=== PATIENT | female | born 2000 | race Caucasian/White ===

== ENCOUNTER 2025-05-18 09:30 | Emergency (ER) | payer BC, SELFPAY ==
[2025-05-18 09:36] VITALS: BP 149/105
--- NOTE | 2025-05-18 11:50 | ED.GENMED ---
History of Present Illness
General
Chief Complaint: Abdominal Symptoms
Source: patient
Exam Limitations: none
Time Seen by Provider: 05/18/25 11:03
Nursing documentation reviewed up to this point in time: agreed with
History of Present Illness
History of Present Illness:
see MDM
Phy Exam
Physical Exam
Physical Exam:
see MDM
Course
Orders/Labs/Results
Orders:
Orders
05/18/25 11:47
CT Abd/Pel (IV only)-DH only Urgent
Comment:
Reason For Exam: n/v/d now RLQ pain
0.9% Sodium Chloride 1000 ml [Nss] 1,000 ml IV BOLUS
Ketorolac [Toradol] 30 mg IV NOW STA
Ondansetron Injectable [Zofran] 4 mg IV NOW STA
Test Result ONCE
05/18/25 11:53
Complete Blood Count/With Diff Urgent
Comprehensive Metabolic Panel Urgent
HCG, Serum Qualitative Screen Urgent
Lipase Urgent
05/18/25 14:18
Urinalysis Reflex To Culture Urgent
Date Specimen was Collected: 05/18/25
Time Specimen was Collected: 14:17
Urine Microscopic Reflex Cult Urgent
Urine Culture Urgent
ANTHONY Source: U
Specimen Description:
Date Specimen was Collected: 05/18/25
Time Specimen was Collected: 14:17
Abnormal Lab Results
05/18/25 05/18/25
11:53 14:18
Hgb 16.1 H g/dL
(12.0-16.0)
BUN 5 L mg/dl
(7-17)
AST 43 H U/L
(14-36)
ALT 79 H U/L
(0-35)
Total Protein 8.7 H g/dl
(6.3-8.2)
Albumin 5.4 H g/dl
(3.5-5.0)
Urine Ketones 2+ A
(Negative)
Ur Occult Blood Reflex 3+ A
(Negative)
Urine RBC 3-6 A /HPF
(0-2)
Urine Bacteria (Reflex) Moderate A
(Negative)
Urine Albumin (Reflex) 1+ A
(Neg - Trace)
05/18/25 11:53
05/18/25 11:53
Vital Signs
Initial and Last Documented VS:
Initial Vital Signs
Temp Pulse Resp BP Pulse Ox
36.8 C 106 16 149/105 99
05/18/25 09:36 05/18/25 09:36 05/18/25 09:36 05/18/25 09:36 05/18/25 09:36
Last Documented Vital Signs
Temp Pulse Resp BP Pulse Ox
36.8 C 88 16 113/74 97
05/18/25 09:36 05/18/25 14:58 05/18/25 14:58 05/18/25 14:58 05/18/25 14:58
MDM/Problems Addressed
Differential Diagnosis Includes:
SEE mdm
MDM/Problems Addressed:
Note:
CHIEF COMPLAINT(S)
Inability to retain oral intake and abdominal pain for three days.
HISTORY OF PRESENT ILLNESS
The patient is a 24-year-old female who presents with an inability to retain oral intake and abdominal pain persisting for three days. The onset of symptoms began with both diarrhea and nausea. she had frequent loose stools after any oral intake
Initially, the pain was localized to the upper abdomen and later involved the lower back.
Her symptoms began more prominently this morning with increased episodes of vomiting throughout the night and continued till this morning. Due to her weakening state, she tried to go to work but was sent home before 7 AM. The patient is negative for
fever or chills but reports cold sensitivity. There is mention of diarrhea, noting it has not subsided because she has not been consuming much to eat. The patient affirms the abdominal pain spans the entirety of the abdomen and shows no sign of
localization.
PAST MEDICAL AND SURGICAL HISTORY
The patient reports taking Gabapentin for anxiety. No history of diabetes, recent injections, or surgeries was noted. She confirms possession of her gallbladder.
SOCIAL DETERMINANTS AFFECTING HEALTH
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
MEDICATIONS
Gabapentin for anxiety.
PHYSICAL EXAM
GENERAL: Alert , in no apparent distress, looks well
EYE: pupils equal and reactive
NECK: Supple
ENT: o/p clr, mmm.
CARDIAC: Regular rate and rhythm .
LUNGS: Clear breath sounds bilaterally, no acute respiratory distress, no wheezes/rales/rhonchi
ABDOMEN: Soft, mild right lower quadrant tenderness, no Mahoney sign, no right upper quadrant tenderness no r/g, no cvat, normal bowel sounds
NEUROLOGICAL: Alert and oriented, no focal neuro deficits
SKIN: Warm and dry, skin intact.
MUSCULOSKELETAL: No edema, well perfused.
PSYCH: Normal and appropriate interaction.
- Nursing notes reviewed and vital signs reviewed.
PROBLEM LIST
Acute:
1. Inability to retain oral intake.
2. Generalized abdominal pain.
3. Loss of consciousness episodes.
4. Vomiting and potential dehydration.
5. Cold sensitivity.
PLAN
1. Blood work and intravenous fluids to assess and manage possible electrolyte imbalance and dehydration.
2. Administer antiemetics for nausea and vomiting control.
3. Perform a computed tomography (CT) scan to evaluate abdominal pain and rule out appendicitis or other intra-abdominal pathology, particularly considering possible colitis or gastroenteritis.
4. Pain management with Toradol as needed.
5. Further evaluation for gallbladder disease, as initial assessment suggests symptoms inconsistent with typical gallbladder location pain.
DIFFERENTIAL DIAGNOSIS
The Differential Diagnosis includes, in no particular order and is not limited to:
1. Gastroenteritis
2. Colitis
3. Peptic Ulcer Disease
4. Appendicitis
5. Gallbladder Disease (Cholecystitis or Cholelithiasis)
6. Pancreatitis
7. Small Bowel Obstruction
8. Urinary Tract Infection
9. Intra-abdominal Abscess
10. Diverticulitis
CARE-UPDATE
05/18/25 - 14:05
The patients recent CAT scan was unremarkable except for mild fatty changes in the liver. The gallbladder, pancreas, appendix, and bowels appeared normal. Blood work showed normal white count and electrolytes, with slightly elevated liver markers,
likely due to a viral infection; other markers such as bilirubin and lipase were normal. There is no indication of a gallbladder infection. The patients pain location has shifted lower, and the nausea has improved with Zofran, though the patient
reports it is wearing off. A urine test will be checked to rule out other causes of discomfort, and the patient will receive a prescription for Zofran to manage nausea at home. A work note will be provided.
*Pulse Oximetry
SaO2: 99
Oxygen Mode of Delivery: Room air
Patient hypoxic: no (97)
*Critical Care Note
Total Time (30-74mins, 75-104mins- exclusive of procedures): Not Applicable
ED Attending Note
-
Portions of this chart may have been created with voice recognition software.� Occasional wrong word or��sound alike� substitutions may have occurred due to the inherent limitations of voice recognition software.
Discharge Plan
Departure
Patient Disposition: Home (Routine Discharge)
Date of Disposition: 05/18/25
Time of Disposition: 15:15
Patient with high blood pressure during this ER visit?: No
Discharge Problem:
Gastroenteritis
Instructions: Viral gastroenteritis in adults, Nausea and vomiting in adults - ED (DC)
Prescriptions:
New
ondansetron 4 mg tablet,disintegrating
4 mg PO Q8H PRN (Reason: nausea and vomiting) 2 Days Qty: 5 0RF
Referrals:
NONE,* [Family Provider, Internal Medicine]
Stand Alone Forms: Return to Work
Activity Restrictions/Additional Instructions:
YOUR LIVER MARKERS WERE A LITTLE HIGH BUT YOUR GALLBLADDER LOOKED NORMAL ON CT
THIS IS LIKELY DUE TO VIRAL GASTROENTERITIS
YOUR OTHER BLOOD WORK WAS NORMAL
TAKE ZOFRAN EVERY 8 HOURS FOR VOMITING AND NAUSEA NEEDED
YOU CAN TAKE MOTRIN FOR PAIN NEEDED
RETURN FOR: SEVERE PAIN, VOMITING CONTINUING DESPITE ZOFRAN, HIGH FEVER, WORSE PAIN ETC
HAVE YOUR DOCTOR CHECK YOUR LIVER MARKERS WHEN YOU ARE ALL BETTER
Interventions
Interventions:
*Risk Screen - Suicide Last Done: 05/18/25 09:36
*General Assessment Last Done: 05/18/25 15:28
*Neglect/Abuse Screening Last Done: 05/18/25 09:36
*ED- Fall Risk Assessment Last Done: 05/18/25 15:29
*ED COVID-19 Vaccine History Last Done: 05/18/25 15:28
*Nursing Disposition Last Done: 05/18/25 15:29
XQ-Mhmxnu-Yefhavpmlr Assessment Last Done: 05/18/25 13:45
Discharge Date and Time
Discharge Date/Time: 05/18/25 15:32
Print Language: PERSIAN
[2025-05-18] MEDS: TORADOL 30 MG IV (11:54)
[2025-05-18] MEDS: ZOFRAN 4 MG IV (11:54)
[2025-05-18] MEDS: NSS 1000 IV (11:58)
[2025-05-18 12:09] LABS: Hematocrit 46.1 % (37.0-47.0); Hemoglobin 16.1 g/dL (12.0-16.0); Mean Corp Hgb Conc. 34.9 g/dL (33.0-37.0); Mean Corpuscular Volume 85.7 fL (81.0-99.0); Nucleated Red Blood Cells % 0 %; Platelet Count 326 10^3/uL (130-400); Red Cell Dist. Width 12.2 % (11.5-14.5)
[2025-05-18 12:21] LABS: HCG, Serum Qualitative Screen Negative
[2025-05-18 12:23] LABS: ALT (SGPT) 79 U/L (0-35); AST (SGOT) 43 U/L (14-36); Albumin 5.4 g/dl (3.5-5.0); Alkaline Phosphatase 79 U/L (38-126); Blood Urea Nitrogen 5 mg/dl (7-17); Calcium 10.1 mg/dl (8.4-10.2); Carbon Dioxide 26 mmol/L (22-30); Chloride 102 mmol/L (98-107); Glucose 92 mg/dl (70-99); Lipase 43 U/L (23-300); Potassium 4.0 mmol/L (3.5-5.1); Sodium 140 mmol/L (135-145); Total Protein 8.7 g/dl (6.3-8.2); eGFR > 60.00
[2025-05-18 14:30] LABS: Urine Character Clear (Clear)
[2025-05-18 14:58] VITALS: BP 113/74
[2025-05-18 15:08] LABS: Urine Squamous Cell >30 /LPF (Few)
[2025-05-18 15:10] LABS: Urine White Cell 0-2 /HPF (0-5)
== END 2025-05-18 15:32 | disposition home or self-care (01) ==
LOC: EMR 09:30
PROVIDERS: Physician Assistant; EMERGENCY PHYSICIAN Student in an Organized Health Care Education/Training Program
DX: K52.9 Noninfective gastroenteritis and colitis, unspecified (principal); F41.9 Anxiety disorder, unspecified
CPT/HCPCS: 99284; 96374; 96375; 96361; 74177; 80053; 81003; 81015; 83690; 84703; 85025; 87086; Q9967